=== PATIENT | male | born 2000 | race Two or more races ===

== ENCOUNTER 2021-09-02 00:56 | Emergency (ER) | payer MEDICAID, OTHER ==
[~2021-09-02] VITALS: Ht 180.3 cm; Wt 95.3 kg
[2021-09-02 06:47] VITALS: BP 115/80
== END 2021-09-02 06:48 | disposition home or self-care (01) ==
LOC: ER 00:56
DX: S20.219A Contusion of unspecified front wall of thorax, initial encounter (principal); V43.92XA Unspecified car occupant injured in collision with other type car in traffic accident, initial encounter; Y93.89 Activity, other specified; Y92.410 Unspecified street and highway as the place of occurrence of the external cause; Y99.8 Other external cause status
CPT/HCPCS: 71250